=== PATIENT | female | born 2000 | race African-American/Black ===

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

== ENCOUNTER 2019-01-30 00:20 | Emergency (ER) | payer OTHER ==
[2019-01-30 00:36] LABS: BILIRUBIN,URINE NEGATIVE (NEGATIVE); GLUCOSE, URINE (UA) NEGATIVE (NEGATIVE); KETONES,URINE (UA) NEGATIVE (NEGATIVE); LEUKOCYTE ESTERASE, URINE NEGATIVE (NEGATIVE); NITRITE,URINE NEGATIVE (NEGATIVE); OCCULT BLOOD,URINE LARGE (NEGATIVE); PH,URINE 6.5 PH (5.0-7.5); PROTEIN,URINE NEGATIVE (NEGATIVE); UROBILINOGEN,URINE 0.2 (NORMAL) E.U./dL (NORMAL)
[2019-01-30 00:38] LABS: CLARITY,URINE CLEAR (CLEAR)
[2019-01-30 00:43] LABS: BACTERIA,URINE Rare /HPF (None Seen); SQUAMOUS EPITHELIAL CELL,UR MANY Squamous (<= Few)
[2019-01-30 01:18] LABS: BASOPHILS % (AUTO) 0.4 %; EOSINOPHILS # (AUTO) 0.1 10^3/uL (0.0-0.7); EOSINOPHILS % (AUTO) 0.7 %; HGB - HEMOGLOBIN 10.8 g/dL (12.0-16.0); LYMPHOCYTES # (AUTO) 2.1 10^3/uL (1.5-3.5); LYMPHOCYTES % (AUTO) 24.2 %; MEAN CORPUSCULAR HEMOGLOBIN 23.7 pg (27.0-31.0); MEAN CORPUSCULAR VOLUME 71.7 fL (81.0-99.0); MONOCYTES # (AUTO) 0.7 10^3/uL (0.0-1.0); MONOCYTES % (AUTO) 8.4 %; NEUTROPHILS # (AUTO) 5.7 10^3/uL (1.5-6.6); NEUTROPHILS % (AUTO) 65.9 %; PLT - PLATELET COUNT 247 10^3/uL (130-450); RED BLOOD COUNT 4.56 10^6/uL (4.20-5.40); RED CELL DISTRIBUTION WIDTH 22.5 % (12.0-15.0); WHITE BLOOD COUNT 8.6 x10^3/uL (4.8-10.8)
--- NOTE | 2019-01-30 01:26 | ED Physician Documentation ---
PD HPI FEMALE - Stated complaint Stated Complaint: FEM /8WKS PREG - Chief complaint Chief Complaint: Abd Pain - History obtained from History obtained from: Patient - History of Present Illness Timing - onset: Enter time (23:00), Today Timing - details: Abrupt onset Pain level max: 0 Pain level max: 3 (mild suprapubic) Associated symptoms: Pelvic pain, Vaginal bleeding. No: Fever, Abdominal pain Contributing factors: (approximately 8 weeks) OB-IT TECHNICIAN History: G (2), P (0), Miscarriage(s) (1) Recently seen: Not recently seen - Additional information Additional information: c/o vaginal bleeding, noted 11 PM tonight when she was urinating. This was associated with mild pelvic cramping. Symptoms have resolved prior to this evaluation Review of Systems Constitutional: denies: Fever, Chills, Sweats GI: denies: Abdominal Pain (pelvic pain, not abdominal pain per se), Nausea, Vomiting : reports: Vaginal bleeding, Now EGA (8 weeks). denies: Dysuria, Frequency Musculoskeletal: denies: Back pain PD PAST MEDICAL HISTORY - Past Medical History Past Medical History: Yes Neuro: Headaches, Migraines - Past Surgical History Past Surgical History: No - Present Medications Home Medications: Ambulatory Orders Medication Instructions Recorded Confirmed No Known Home Medications 10/08/18 12/24/18 - Allergies Allergies/Adverse Reactions: Allergies Allergy/AdvReac Type Severity Reaction Status Date / Time No Known Drug Allergies Allergy Verified 01/30/19 00:29 - Social History Does the pt smoke?: No Smoking Status: Never smoker Does the pt drink ETOH?: No Does the pt have substance abuse?: No - Immunizations Immunizations are current?: Yes - POLST Patient has POLST: No PD ED PE NORMAL - Vitals Vital signs reviewed: Yes - General General: Alert and oriented X 3, No acute distress, Well developed/nourished - Cardiac Cardiac: RRR, No murmur - Respiratory Respiratory: No respiratory distress, Clear bilaterally - Abdomen Abdomen: Soft, Non tender - Back Back: No CVA TTP Results - Vitals Vitals: Vital Signs - 24 hr 01/30/19 01/30/19 01/30/19 00:23 03:16 03:53 Temperature 36.9 C 36.9 C Heart Rate 74 65 71 Respiratory 16 14 14 Rate Blood Pressure 146/83 H 129/56 L 137/82 H O2 Saturation 100 100 100 Oxygen O2 Source Room air - Labs Labs: Laboratory Tests 01/30/19 01/30/19 01/30/19 00:27 01:08 01:08 WBC 8.6 RBC 4.56 Hgb 10.8 L Hct 32.7 L MCV 71.7 L MCH 23.7 L MCHC 33.0 RDW 22.5 H Plt Count 247 Neut # (Auto) 5.7 Lymph # (Auto) 2.1 [place] # (Auto) 0.7 Eos # (Auto) 0.1 Baso # (Auto) 0.0 Absolute Nucleated RBC 0.00 Nucleated RBC % 0.0 Sodium 136 Potassium 3.8 Chloride 105 Carbon Dioxide 22 Anion Gap 9.0 BUN 8 Creatinine 0.6 Estimated GFR (MDRD) 156 Glucose 89 Calcium 9.5 Total Bilirubin 0.3 AST 15 ALT < 10 L Alkaline Phosphatase 42 Total Protein 7.8 Albumin 4.1 Globulin 3.7 Albumin/Globulin Ratio 1.1 Lipase 27 Serum HCG, Qual Urine Color YELLOW Urine Clarity CLEAR Urine pH 6.5 Ur Specific [place] 1.010 Urine Protein NEGATIVE Urine Glucose (UA) NEGATIVE Urine Ketones NEGATIVE Urine Occult Blood LARGE H Urine Nitrite NEGATIVE Urine Bilirubin NEGATIVE Urine Urobilinogen 0.2 (NORMAL) Ur Leukocyte Esterase NEGATIVE Urine RBC 11-25 H Urine WBC 0-3 Ur Squamous Epith Cells MANY Squamous H Urine Bacteria Rare Ur Microscopic Review INDICATED Urine Culture Comments NOT INDICATED Blood Type 01/30/19 01/30/19 01:08 01:08 WBC RBC Hgb Hct MCV MCH MCHC RDW Plt Count Neut # (Auto) Lymph # (Auto) [place] # (Auto) Eos # (Auto) Baso # (Auto) Absolute Nucleated RBC Nucleated RBC % Sodium Potassium Chloride Carbon Dioxide Anion Gap BUN Creatinine Estimated GFR (MDRD) Glucose Calcium Total Bilirubin AST ALT Alkaline Phosphatase Total Protein Albumin Globulin Albumin/Globulin Ratio Lipase Serum HCG, Qual POSITIVE Urine Color Urine Clarity Urine pH Ur Specific [place] Urine Protein Urine Glucose (UA) Urine Ketones Urine Occult Blood Urine Nitrite Urine Bilirubin Urine Urobilinogen Ur Leukocyte Esterase Urine RBC Urine WBC Ur Squamous Epith Cells Urine Bacteria Ur Microscopic Review Urine Culture Comments Blood Type A POSITIVE - Rads (name of study) pelvic US Radiology: Prelim report reviewed, See rad report PD MEDICAL DECISION MAKING - ED course Complexity details: reviewed results, re-evaluated patient, considered differential, d/w patient Departure - Departure Disposition: 01 Home, Self Care Clinical Impression: Threatened in first trimester Condition: Good Instructions: ED Miscarriage Poss Follow-Up: [facility]cl[facility] [Provider Group] Discharge Date/Time: 01/30/19 04:01
[2019-01-30 01:28] LABS: ALBUMIN 4.1 g/dL (3.2-5.5); ALBUMIN/GLOBULIN RATIO 1.1 (1.0-2.2); ALKALINE PHOSPHATASE 42 IU/L (42-121); ALT ALANINE AMINOTRANSFERASE < 10 IU/L (10-60); AST ASPARTATE AMINOTRANSFERASE 15 IU/L (10-42); BILIRUBIN,TOTAL 0.3 mg/dL (0.2-1.0); BUN - BLOOD UREA NITROGEN 8 mg/dL (6-20); CALCIUM 9.5 mg/dL (8.5-10.3); CARBON DIOXIDE - CO2 22 mmol/L (21-32); CHLORIDE 105 mmol/L (101-111); CREATININE 0.6 mg/dL (0.4-1.0); GFR - MDRD 156 (>89); GLUCOSE 89 mg/dL (70-100); LIPASE 27 U/L (22-51); SODIUM 136 mmol/L (135-145); TOTAL PROTEIN 7.8 g/dL (6.7-8.2)
[2019-01-30 01:57] LABS: HCG,QUALITATIVE BLOOD POSITIVE
--- NOTE | 2019-01-30 03:35 | Ultrasound Report ---
Reason: , vaginal bleeding Procedure Date: 01/30/2019 Accession Number: [id number] / [id number] Procedure: US - OB First Trimester CPT Code: Final Report FULL RESULT: EXAM: FIRST TRIMESTER OBSTETRIC ULTRASOUND (Less than 11 weeks) EXAM DATE: 01/30/2019 03:06 AM CLINICAL HISTORY: , vaginal bleeding. COMPARISONS: None. TECHNIQUE: Transabdominal and transvaginal ultrasound examination with static image documentation. FINDINGS: LMP: 12/07/2018. Estimated gestational age: 7 weeks 5 days. Estimated due date: 09/13/2019. Gestational Sac: Single intrauterine. Mean gestational sac diameter: 31.6 mm = 8 weeks 3 days. Embryo: CRL (crown-rump length) 18.7 mm = 8 weeks 3 days. Cardiac activity: 171 beats per minute. Yolk sac: 4.6 mm. Amniotic fluid: Not accurately assessed at this gestational age. Early placenta: Not visible at this gestational age. Other: No perigestational fluid collection demonstrated. MATERNAL STRUCTURES: Uterus: Retroflexed. Unremarkable. Cervix: Closed. Right Ovary/Adnexa: The ovary measures 1.8 x 3.0 x 1.7. Unremarkable. Left Ovary/Adnexa: The ovary measures 3.3 x 2.0 x 2.5 cm, with a small corpus luteum cyst measuring 2.6 x 1.4 x 1.8 cm. Unremarkable. Free Fluid: None. Other: None. IMPRESSION: 1. Single live intrauterine gestation measuring 8 weeks 3 days with a due date of 09/08/2019. This is discordant with dates based on LMP. 2. No perigestational hemorrhage evident on this exam. RADIA
[2019-01-30 03:54] VITALS: BP 137/82
== END 2019-01-30 04:01 | disposition home or self-care (01) ==
LOC: ED 00:20
DX: O20.0 Threatened abortion (principal); Z3A.08 8 weeks gestation of pregnancy
CPT/HCPCS: 36415; 76801; 76817; 80053; 81001; 81003; 83690; 84702; 84703; 85025; 86900; 86901; 87086; 99284

== ENCOUNTER 2019-03-29 13:43 | Emergency (ER) | payer OTHER ==
[2019-03-29 14:24] LABS: BASOPHILS % (AUTO) 0.4 %; EOSINOPHILS # (AUTO) 0.1 10^3/uL (0.0-0.7); EOSINOPHILS % (AUTO) 0.9 %; HGB - HEMOGLOBIN 11.7 g/dL (12.0-16.0); LYMPHOCYTES # (AUTO) 1.5 10^3/uL (1.5-3.5); MEAN CORPUSCULAR HEMOGLOBIN 26.9 pg (27.0-31.0); MEAN CORPUSCULAR HGB CONC 34.7 g/dL (32.0-36.0); MEAN CORPUSCULAR VOLUME 77.5 fL (81.0-99.0); MEAN PLATELET VOLUME 12.1 fL (7.9-10.8); MONOCYTES # (AUTO) 0.6 10^3/uL (0.0-1.0); MONOCYTES % (AUTO) 8.1 %; NEUTROPHILS # (AUTO) 5.2 10^3/uL (1.5-6.6); NEUTROPHILS % (AUTO) 70.1 %; PLT - PLATELET COUNT 206 10^3/uL (130-450); RED BLOOD COUNT 4.35 10^6/uL (4.20-5.40); RED CELL DISTRIBUTION WIDTH 15.5 % (12.0-15.0); WHITE BLOOD COUNT 7.5 x10^3/uL (4.8-10.8)
[2019-03-29 14:43] LABS: ALBUMIN 3.5 g/dL (3.2-5.5); ALBUMIN/GLOBULIN RATIO 0.9 (1.0-2.2); BILIRUBIN,TOTAL 0.4 mg/dL (0.2-1.0); CALCIUM 9.3 mg/dL (8.5-10.3); CREATININE 0.6 mg/dL (0.4-1.0); TOTAL PROTEIN 7.3 g/dL (6.7-8.2)
[2019-03-29] MEDS ORDERED: LIDOCAINE VISCOUS 2% 15 ML UDC MM STA (15:38)
[2019-03-29] MEDS ORDERED: MAG HYDROX/AL HYDROX/SIMETH 30 ML UDC PO STA (15:39)
--- NOTE | 2019-03-29 16:42 | ED Physician Documentation ---
History of Present Illness - Stated complaint Stated Complaint: CHEST/ABD PAIN - Chief complaint Chief Complaint: Abd Pain - History obtained from History obtained from: Patient - Additonal information Additional information: This is a 18-year-old who is 16 weeks presents with complaints that she is having sharp substernal chest pains as well as pains in the right upper abdomen and across the suprapubic region. This is been there for the past 3 days they are very intermittent more persistent in the suprapubic area and could last for 30 to 60 minutes. She has had some nausea but denies any heartburn. She has felt a little short of breath and been coughing some. She had some subjective fevers. Her last OB check was in February and she says she is not scheduled again until April 12 [facility] referred her to a specialist for specific genetic testing based on her family history. She does she is 2 para 0 with a first trimester prior m iscarriage. Review of Systems Constitutional: reports: Fever (subjective) Cardiac: reports: Chest pain / pressure. denies: Palpitations Respiratory: reports: Dyspnea, Cough GI: reports: Abdominal Pain, Nausea : reports: Now EGA. denies: Dysuria PD PAST MEDICAL HISTORY - Past Medical History Neuro: Headaches, Migraines - Past Surgical History Past Surgical History: No - Present Medications Home Medications: Ambulatory Orders Medication Instructions Recorded Confirmed cephALEXin [Keflex] 250 mg PO Q6H #28 capsule 03/29/19 - Allergies Allergies/Adverse Reactions: Allergies Allergy/AdvReac Type Severity Reaction Status Date / Time No Known Drug Allergies Allergy Verified 03/29/19 13:47 - Social History Does the pt smoke?: No Smoking Status: Never smoker Does the pt drink ETOH?: No Does the pt have substance abuse?: No - Immunizations Immunizations are current?: Yes - POLST Patient has POLST: No PD ED PE NORMAL - Vitals Vital signs reviewed: Yes - General General: Alert and oriented X 3, No acute distress, Well developed/nourished - HEENT HEENT: Atraumatic, PERRL, EOMI, Other (No scleral icterus.) - Cardiac Cardiac: RRR, No murmur, No gallop, No rub, Strong equal pulses - Respiratory Respiratory: No respiratory distress, Clear bilaterally - Abdomen Abdomen: Normal bowel sounds, Soft, Non tender, Non distended, Other (Gravid uterus) - Derm Derm: Normal color, Warm and dry, No rash - Neuro Neuro: Alert and oriented X 3, barrel maker 2-12 intact, No motor deficit, No sensory deficit, Normal speech - Psych Psych: Normal mood, Normal affect Results - Vitals Vitals: Vital Signs - 24 hr 03/29/19 03/29/19 03/29/19 13:47 15:51 16:55 Temperature 36.8 C 37.1 C Heart Rate 83 76 71 Respiratory 14 20 18 Rate Blood Pressure 110/66 116/71 116/79 O2 Saturation 100 100 100 Oxygen O2 Source Room air - EKG (time done) 1354 Rate: Rate (enter#) (85) Rhythm: NSR Intervals: No: Wide QRS Ischemia: Normal ST segments, T wave inversion (III, aVF, V1-3) Compare to prior EKG: Old EKG unavailable - Labs Labs: Laboratory Tests 03/29/19 03/29/19 03/29/19 14:14 14:14 16:30 WBC 7.5 RBC 4.35 Hgb 11.7 L Hct 33.7 L MCV 77.5 L MCH 26.9 L MCHC 34.7 RDW 15.5 H Plt Count 206 MPV 12.1 H Neut # (Auto) 5.2 Lymph # (Auto) 1.5 [place] # (Auto) 0.6 Eos # (Auto) 0.1 Baso # (Auto) 0.0 Absolute Nucleated RBC 0.00 Nucleated RBC % 0.0 Sodium 135 Potassium 3.6 Chloride 105 Carbon Dioxide 23 Anion Gap 7.0 BUN 7 Creatinine 0.6 Estimated GFR (MDRD) 156 Glucose 84 Calcium 9.3 Total Bilirubin 0.4 AST 17 ALT 12 Alkaline Phosphatase 40 L Total Protein 7.3 Albumin 3.5 Globulin 3.8 Albumin/Globulin Ratio 0.9 L Lipase 24 Urine Color YELLOW Urine Clarity HAZY Urine pH 7.0 Ur Specific [place] 1.020 Urine Protein NEGATIVE Urine Glucose (UA) NEGATIVE Urine Ketones NEGATIVE Urine Occult Blood NEGATIVE Urine Nitrite NEGATIVE Urine Bilirubin NEGATIVE Urine Urobilinogen 0.2 (NORMAL) Ur Leukocyte Esterase MODERATE H Urine RBC 0-5 Urine WBC 4-5 Ur Squamous Epith Cells MANY Squamous H Urine Bacteria Many H Ur Microscopic Review INDICATED Urine Culture Comments NOT INDICATED PD MEDICAL DECISION MAKING - ED course Complexity details: reviewed old records ( ) ED course: 1708: The patient received a GI cocktail with Maalox and viscous lidocaine. Her laboratory studies are normal. I am still waiting on a urinalysis to make sure there is no protein or infection. She said she was feeling completely better following the GI cocktail. heart tones were 134. 1735: The urine was unfortunately a contaminated specimen but there was no protein in it. There were a lot of squamous epithelial cells only 4-5 white blood cells but many bacteria. Given the and lower suprapubic discomfort I have elected to cover her with antibiotics and have asked that a culture be set up. She should follow-up with her OB if she continues with suprapubic discomfort. Return immediately if she has any vaginal bleeding. Departure - Departure Disposition: Home, Self Care Clinical Impression: Atypical chest pain GERD (gastroesophageal reflux disease) Qualifiers: Esophagitis presence: without esophagitis Qualified Code(s): K21.9 - Gastro- esophageal reflux disease without esophagitis Abdominal pain Qualifiers: Abdominal location: generalized Qualified Code(s): R10.84 - Generalized abd ominal pain Qualifiers: Weeks of gestation: 16 weeks Qualified Code(s): Z3A.16 - 16 weeks gestation of UTI (urinary tract infection) Qualifiers: Urinary tract infection type: acute cystitis Hematuria presence: without hematuria Qualified Code(s): N30.00 - Acute cystitis without hematuria Condition: Good Instructions: ED GERD, ED UTI Cystitis Female Follow-Up: Rico Stanley ARNP [Primary Care Provider] - [facility] [Provider Group] Prescriptions: cephALEXin [Keflex] 250 mg PO Q6H #28 capsule Comments: Take the antibiotic 4 times a day as prescribed. Make sure that you are drinking plenty of water. Use Maalox if you are experiencing any chest pains like he had today. Follow-up with your OB for continued suprapubic pain. Follow-up immediately with them or return if you have increasing pain like contractions, you have vaginal bleeding or other problems arise.
[2019-03-29 16:48] LABS: BILIRUBIN,URINE NEGATIVE (NEGATIVE); GLUCOSE, URINE (UA) NEGATIVE (NEGATIVE); KETONES,URINE (UA) NEGATIVE (NEGATIVE); LEUKOCYTE ESTERASE, URINE MODERATE (NEGATIVE); NITRITE,URINE NEGATIVE (NEGATIVE); OCCULT BLOOD,URINE NEGATIVE (NEGATIVE); PROTEIN,URINE NEGATIVE (NEGATIVE); UROBILINOGEN,URINE 0.2 (NORMAL) E.U./dL (NORMAL)
[2019-03-29 16:50] LABS: CLARITY,URINE HAZY (CLEAR)
[2019-03-29 16:55] VITALS: BP 116/79
[2019-03-29 16:55] LABS: BACTERIA,URINE Many /HPF (None Seen); RBC,URINE 0-5 /HPF (0-5); SQUAMOUS EPITHELIAL CELL,UR MANY Squamous (<= Few)
== END 2019-03-29 17:58 | disposition home or self-care (01) ==
LOC: ED 13:43
DX: O99.89 Other specified diseases and conditions complicating pregnancy, childbirth and the puerperium (principal); R07.89 Other chest pain; R10.84 Generalized abdominal pain; N30.00 Acute cystitis without hematuria; Z3A.16 16 weeks gestation of pregnancy
CPT/HCPCS: 36415; 80053; 81001; 83690; 85025; 87086; 93005; 99283; 99284; A9270; 81003

== ENCOUNTER 2019-05-12 13:42 | Outpatient (CLI) | payer OTHER | END 2019-05-12 13:43 | disposition EMS.NT | LOC: EMS 13:42 | PROVIDERS: ATTEND Surgery | DX: O99.89 Other specified diseases and conditions complicating pregnancy, childbirth and the puerperium (principal); R51 Headache ==

== ENCOUNTER 2019-05-12 14:25 | Emergency (ER) | payer OTHER ==
[2019-05-12] MEDS ORDERED: MAG HYDROX/AL HYDROX/SIMETH 30 ML UDC PO STA (15:01)
[2019-05-12] MEDS ORDERED: BENZONATATE 100 MG CAPSULE PO STA (15:01)
[2019-05-12] MEDS ORDERED: IBUPROFEN 600 MG TABLET PO STA (15:01)
[2019-05-12] MEDS ORDERED: ACETAMINOPHEN 325 MG TABLET PO STA (15:01)
[2019-05-12 15:52] LABS: BASOPHILS % (AUTO) 0.1 %; EOSINOPHILS % (AUTO) 0.3 %; LYMPHOCYTES # (AUTO) 1.6 10^3/uL (1.5-3.5); LYMPHOCYTES % (AUTO) 16.8 %; MEAN CORPUSCULAR HEMOGLOBIN 27.1 pg (27.0-31.0); MEAN CORPUSCULAR HGB CONC 34.1 g/dL (32.0-36.0); MEAN CORPUSCULAR VOLUME 79.6 fL (81.0-99.0); MEAN PLATELET VOLUME 11.5 fL (7.9-10.8); MONOCYTES # (AUTO) 0.8 10^3/uL (0.0-1.0); MONOCYTES % (AUTO) 7.8 %; NEUTROPHILS # (AUTO) 7.2 10^3/uL (1.5-6.6); NEUTROPHILS % (AUTO) 74.4 %; PLT - PLATELET COUNT 193 10^3/uL (130-450); RED BLOOD COUNT 4.06 10^6/uL (4.20-5.40); RED CELL DISTRIBUTION WIDTH 13.7 % (12.0-15.0); WHITE BLOOD COUNT 9.7 x10^3/uL (4.8-10.8)
[2019-05-12 16:05] LABS: ALBUMIN 3.4 g/dL (3.2-5.5); ALBUMIN/GLOBULIN RATIO 0.9 (1.0-2.2); BILIRUBIN,TOTAL 0.6 mg/dL (0.2-1.0); CALCIUM 9.2 mg/dL (8.5-10.3); CREATININE 0.5 mg/dL (0.4-1.0)
--- NOTE | 2019-05-12 16:10 | ED Physician Documentation ---
PD HPI CHEST PAIN - Stated complaint Stated Complaint: CHEST DISCOMFORT - Chief complaint Chief Complaint: Resp - History obtained from History obtained from: Patient - History of Present Illness Timing - onset: How many hours ago (1), Today Timing - duration: Hours (1) Timing - details: Abrupt onset, Still present, Waxing and waning Quality: Aching Location: Substernal, Left chest (at sternal border) Worsened by: Inspiration, Movement. No: Exertion Associated symptoms: Cough (for couple of days). No: Shortness of air, Nausea, Vomiting Similar symptoms before: Has not had sx before Recently seen: Not recently seen Review of Systems Constitutional: denies: Fever, Chills, Myalgias Nose: denies: Rhinorrhea / runny nose, Congestion Throat: denies: Sore throat Respiratory: reports: Cough GI: reports: Nausea. denies: Abdominal Pain, Vomiting, Diarrhea : reports: Now EGA (23 weeks). denies: Vaginal bleeding PD PAST MEDICAL HISTORY - Past Medical History Neuro: Headaches, Migraines - Past Surgical History Past Surgical History: No - Present Medications Home Medications: Ambulatory Orders Medication Instructions Recorded Confirmed Ibuprofen [Motrin] 600 mg PO TID PRN #15 tab 05/12/19 - Allergies Allergies/Adverse Reactions: Allergies Allergy/AdvReac Type Severity Reaction Status Date / Time No Known Drug Allergies Allergy Verified 05/12/19 15:15 - Social History Does the pt smoke?: No Smoking Status: Never smoker Does the pt drink ETOH?: No Does the pt have substance abuse?: No - Immunizations Immunizations are current?: Yes - POLST Patient has POLST: No PD ED PE NORMAL - Vitals Vital signs reviewed: Yes - General General: Alert and oriented X 3, No acute distress, Well developed/nourished - HEENT HEENT: Moist mucous membranes, Pharynx benign - Neck Neck: Supple, no meningeal sign, No adenopathy - Cardiac Cardiac: RRR, No murmur - Respiratory Respiratory: Clear bilaterally, Other (left chestwall tenderness at sternal margin. No rash nor redness. ) - Abdomen Abdomen: Normal bowel sounds, Soft, Non tender, No organomegaly, Other (gravid with fundus above umbilicus c/w dates. ) Results - Vitals Vitals: Vital Signs - 24 hr 05/12/19 05/12/19 14:20 16:15 Temperature 36.9 C 36.7 C Heart Rate 67 74 Respiratory 16 20 Rate Blood Pressure 129/65 139/71 H O2 Saturation 100 100 Oxygen O2 Source Room air - EKG (time done) 14:38 Rate: Rate (enter#) (67) Rhythm: NSR [place]: Normal Intervals: Normal [place] QRS: Normal Ischemia: Normal ST segments. No: ST elevation c/w ischemia, ST depression - Labs Labs: Laboratory Tests 05/12/19 05/12/19 15:43 15:43 WBC 9.7 RBC 4.06 L Hgb 11.0 L Hct 32.3 L MCV 79.6 L MCH 27.1 MCHC 34.1 RDW 13.7 Plt Count 193 MPV 11.5 H Neut # (Auto) 7.2 H Lymph # (Auto) 1.6 [place] # (Auto) 0.8 Eos # (Auto) 0.0 Baso # (Auto) 0.0 Absolute Nucleated RBC 0.00 Nucleated RBC % 0.0 Sodium 136 Potassium 3.5 Chloride 105 Carbon Dioxide 21 Anion Gap 10.0 BUN 9 Creatinine 0.5 Estimated GFR (MDRD) 193 Glucose 87 Calcium 9.2 Total Bilirubin 0.6 AST 16 ALT 13 Alkaline Phosphatase 49 Total Protein 7.0 Albumin 3.4 Globulin 3.6 Albumin/Globulin Ratio 0.9 L Lipase 25 PD MEDICAL DECISION MAKING - ED course Complexity details: considered differential (has tenderness in sternal cartilage. No rash, no cough, CXR clear. Not improved with GI meds. Presume inflammation related to recent cough. ), d/w patient Departure - Departure Disposition: 01 Home, Self Care Clinical Impression: Anterior chest wall pain Condition: Stable Record reviewed to determine appropriate education?: Yes Instructions: ED Chest Pain Costochondritis Follow-Up: Rico Stanley ARNP [Primary Care Provider] - Prescriptions: Ibuprofen [Motrin] 600 mg PO TID PRN #15 tab PRN Reason: Pain Comments: Your blood tests are normal. No signs of pancreatic or liver abnormality. You could be having some stomach symptoms related to acid production or so. It seems more clinically though that you are having some inflammation of the chest wall as there is a little tenderness there. At this point in your you can still use anti-inflammatories so consider some ibuprofen 2-3 times a day for the next 4 to 5 days. To that add Tylenol if needed. Recheck if not improved over the next couple of days and return if other symptoms develop sooner. Discharge Date/Time: 05/12/19 16:16
[2019-05-12 16:15] VITALS: BP 139/71
== END 2019-05-12 16:16 | disposition home or self-care (01) ==
LOC: EDUNIT# → ED 14:25
DX: O99.89 Other specified diseases and conditions complicating pregnancy, childbirth and the puerperium (principal); R07.89 Other chest pain; Z3A.23 23 weeks gestation of pregnancy
CPT/HCPCS: 36415; 80053; 83690; 85025; 93005; 99283; 99284; A9270

== ENCOUNTER 2019-05-23 20:40 | Outpatient (CLI) | payer OTHER | END 2019-05-23 20:41 | disposition critical access hospital (66) | LOC: EMS 20:40 | PROVIDERS: ATTEND Surgery | DX: S51.812A Laceration without foreign body of left forearm, initial encounter (principal); X78.1XXA Intentional self-harm by knife, initial encounter; Y92.039 Unspecified place in apartment as the place of occurrence of the external cause | CPT/HCPCS: A0425; A0429 ==

== ENCOUNTER 2019-05-23 20:57 | Emergency (ER) | payer OTHER ==
--- NOTE | 2019-05-23 21:25 | ED Physician Documentation ---
<Jhon Mancia - Last Filed: 05/24/19 16:30> PD HPI MHE - Stated complaint Stated Complaint: SI - Chief complaint Chief Complaint: MHE - History obtained from History obtained from: Patient - History of Present Illness Primary symptom: Self harm - cut, Depression Timing - onset: Enter time (19:00), Today Pain level now: 0 Similar symptoms before: Has not had sx before Recently seen: Not recently seen - Additional information Additional information: BIBA for SI and self-harm. Patient tells me she was depressed tonight and used a knife to self-inflict lacerations to left FA. She cannot give a specific inciting factor or incident that caused this, tells me "a lot going on at home". She is 24 weeks and lives alone; has no-contact order w/ since March. She denies h/o self-harm, denies having been evaluated in the past for mental health issues. She says she has been depressed for several months but worse past several days. Review of Systems Cardiac: reports: Reviewed and negative Respiratory: reports: Reviewed and negative GI: reports: Reviewed and negative Skin: reports: Laceration (s) Neurologic: denies: Focal weakness, Numbness Psychiatric: reports: Depressed PD PAST MEDICAL HISTORY - Past Medical History Past Medical History: Yes Cardiovascular: None Respiratory: None Neuro: Headaches, Migraines Endocrine/Autoimmune: None GI: None DRY CAN TENDER: None : None HEENT: None Psych: None Musculoskeletal: None Derm: None - Past Surgical History Past Surgical History: No - Present Medications Home Medications: Ambulatory Orders Medication Instructions Recorded Confirmed Ibuprofen [Motrin] 600 mg PO TID PRN #15 tab 05/12/19 - Allergies Allergies/Adverse Reactions: Allergies Allergy/AdvReac Type Severity Reaction Status Date / Time No Known Drug Allergies Allergy Verified 05/23/19 21:00 - Social History Does the pt smoke?: No Smoking Status: Never smoker Does the pt drink ETOH?: No Does the pt have substance abuse?: No - Immunizations Immunizations are current?: Yes - POLST Patient has POLST: No PD ED PE NORMAL - Vitals Vital signs reviewed: Yes - General General: Alert and oriented X 3, No acute distress, Well developed/nourished - Cardiac Cardiac: RRR, No murmur - Respiratory Respiratory: No respiratory distress, Clear bilaterally - Abdomen Abdomen: Soft, Non tender - Extremities Extremities: Other (multiple linear, superficial left FA lacerations with single linear, superficial right FA laceration) - Neuro Neuro: Alert and oriented X 3 Eye Opening: Spontaneous Motor: Obeys Commands Verbal: Oriented GCS Score: 15 - Psych Psych: Normal mood, Normal affect PD MEDICAL DECISION MAKING - ED course Complexity details: reviewed results, re-evaluated patient, considered differential, d/w patient Departure - Departure Disposition: 65 Psych Hosp/Unit DC/Xfer Clinical Impression: Suicidal ideation Discharge Date/Time: 05/24/19 14:55 <Kristopher Day - Last Filed: 05/24/19 19:13> Results - Vitals Vitals: Vital Signs - 24 hr 05/23/19 05/23/19 05/23/19 21:01 21:08 22:00 Temperature 36.9 C Heart Rate 83 Respiratory 14 16 16 Rate Blood Pressure 129/78 O2 Saturation 98 05/23/19 05/24/19 05/24/19 23:02 00:05 02:13 Temperature Heart Rate Respiratory 17 16 15 Rate Blood Pressure O2 Saturation 05/24/19 05/24/19 05/24/19 03:19 03:46 04:55 Temperature Heart Rate Respiratory 14 14 14 Rate Blood Pressure O2 Saturation 05/24/19 09:25 Temperature 37.0 C Heart Rate 77 Respiratory 15 Rate Blood Pressure 106/55 L O2 Saturation 99 Oxygen O2 Source Room air - Labs Labs: Laboratory Tests 05/23/19 05/23/19 05/23/19 21:31 21:31 21:51 WBC 10.0 RBC 4.03 L Hgb 11.3 L Hct 32.8 L MCV 81.4 MCH 28.0 MCHC 34.5 RDW 13.2 Plt Count 214 MPV 12.6 H Neut # (Auto) 7.1 H Lymph # (Auto) 1.9 [place] # (Auto) 0.8 Eos # (Auto) 0.1 Baso # (Auto) 0.0 Absolute Nucleated RBC 0.00 Nucleated RBC % 0.0 Sodium 138 Potassium 3.8 Chloride 106 Carbon Dioxide 23 Anion Gap 9.0 BUN 7 Creatinine 0.6 Estimated GFR (MDRD) 156 Glucose 89 Calcium 9.3 Total Bilirubin 0.5 AST 22 ALT 16 Alkaline Phosphatase 54 Total Protein 7.1 Albumin 3.5 Globulin 3.6 Albumin/Globulin Ratio 1.0 Lipase 31 Urine Color Urine Clarity Urine pH Ur Specific [place] Urine Protein Urine Glucose (UA) Urine Ketones Urine Occult Blood Urine Nitrite Urine Bilirubin Urine Urobilinogen Ur Leukocyte Esterase Ur Microscopic Review Urine Culture Comments Urine HCG, Qual Salicylates < 6.0 Urine Opiates Screen Ur Oxycodone Screen Urine Methadone Screen Ur Propoxyphene Screen Acetaminophen < 10 L Ur Barbiturates Screen Ur Tricyclics Screen Ur Phencyclidine Scrn Ur Amphetamine Screen U Methamphetamines Scrn U Benzodiazepines Scrn Urine Cocaine Screen U Cannabinoids Screen Ethyl Alcohol < 5.0 05/23/19 05/23/19 22:00 22:00 WBC RBC Hgb Hct MCV MCH MCHC RDW Plt Count MPV Neut # (Auto) Lymph # (Auto) [place] # (Auto) Eos # (Auto) Baso # (Auto) Absolute Nucleated RBC Nucleated RBC % Sodium Potassium Chloride Carbon Dioxide Anion Gap BUN Creatinine Estimated GFR (MDRD) Glucose Calcium Total Bilirubin AST ALT Alkaline Phosphatase Total Protein Albumin Globulin Albumin/Globulin Ratio Lipase Urine Color YELLOW Urine Clarity CLEAR Urine pH 7.0 Ur Specific [place] <=1.005 Urine Protein NEGATIVE Urine Glucose (UA) NEGATIVE Urine Ketones NEGATIVE Urine Occult Blood NEGATIVE Urine Nitrite NEGATIVE Urine Bilirubin NEGATIVE Urine Urobilinogen 0.2 (NORMAL) Ur Leukocyte Esterase NEGATIVE Ur Microscopic Review NOT INDICATED Urine Culture Comments NOT INDICATED Urine HCG, Qual POSITIVE Salicylates Urine Opiates Screen NEGATIVE Ur Oxycodone Screen NEGATIVE Urine Methadone Screen NEGATIVE Ur Propoxyphene Screen NEGATIVE Acetaminophen Ur Barbiturates Screen NEGATIVE Ur Tricyclics Screen NEGATIVE Ur Phencyclidine Scrn NEGATIVE Ur Amphetamine Screen NEGATIVE U Methamphetamines Scrn NEGATIVE U Benzodiazepines Scrn NEGATIVE Urine Cocaine Screen NEGATIVE U Cannabinoids Screen NEGATIVE Ethyl Alcohol PD MEDICAL DECISION MAKING - ED course Complexity details: reviewed results ED course: 18-year-old female with depression and suicidal ideation is accepted voluntary to [facility].
[2019-05-23 21:37] LABS: BASOPHILS % (AUTO) 0.2 %; EOSINOPHILS # (AUTO) 0.1 10^3/uL (0.0-0.7); EOSINOPHILS % (AUTO) 0.6 %; HGB - HEMOGLOBIN 11.3 g/dL (12.0-16.0); LYMPHOCYTES # (AUTO) 1.9 10^3/uL (1.5-3.5); MEAN CORPUSCULAR HGB CONC 34.5 g/dL (32.0-36.0); MEAN CORPUSCULAR VOLUME 81.4 fL (81.0-99.0); MEAN PLATELET VOLUME 12.6 fL (7.9-10.8); MONOCYTES # (AUTO) 0.8 10^3/uL (0.0-1.0); MONOCYTES % (AUTO) 8.4 %; NEUTROPHILS # (AUTO) 7.1 10^3/uL (1.5-6.6); NEUTROPHILS % (AUTO) 71.2 %; PLT - PLATELET COUNT 214 10^3/uL (130-450); RED BLOOD COUNT 4.03 10^6/uL (4.20-5.40); RED CELL DISTRIBUTION WIDTH 13.2 % (12.0-15.0)
[2019-05-23 21:59] LABS: ACETAMINOPHEN < 10 ug/mL (10-30); ALBUMIN 3.5 g/dL (3.2-5.5); ALKALINE PHOSPHATASE 54 IU/L (42-121); ALT ALANINE AMINOTRANSFERASE 16 IU/L (10-60); AST ASPARTATE AMINOTRANSFERASE 22 IU/L (10-42); BILIRUBIN,TOTAL 0.5 mg/dL (0.2-1.0); BUN - BLOOD UREA NITROGEN 7 mg/dL (6-20); CALCIUM 9.3 mg/dL (8.5-10.3); CARBON DIOXIDE - CO2 23 mmol/L (21-32); CHLORIDE 106 mmol/L (101-111); CREATININE 0.6 mg/dL (0.4-1.0); GFR - MDRD 156 (>89); GLUCOSE 89 mg/dL (70-100); LIPASE 31 U/L (22-51); SALICYLATE < 6.0 mg/dL; SODIUM 138 mmol/L (135-145); TOTAL PROTEIN 7.1 g/dL (6.7-8.2)
[2019-05-23 22:03] LABS: MUDS CUTOFF CONCENTRATIONS CUTOFF CONC BELOW:
[2019-05-23 22:05] LABS: BILIRUBIN,URINE NEGATIVE (NEGATIVE); GLUCOSE, URINE (UA) NEGATIVE (NEGATIVE); KETONES,URINE (UA) NEGATIVE (NEGATIVE); LEUKOCYTE ESTERASE, URINE NEGATIVE (NEGATIVE); NITRITE,URINE NEGATIVE (NEGATIVE); OCCULT BLOOD,URINE NEGATIVE (NEGATIVE); PROTEIN,URINE NEGATIVE (NEGATIVE); UROBILINOGEN,URINE 0.2 (NORMAL) E.U./dL (NORMAL)
[2019-05-23 22:07] LABS: CLARITY,URINE CLEAR (CLEAR); HCG UR QUAL POSITIVE
[2019-05-23 22:15] LABS: AMPHETAMINE SCREEN,URINE NEGATIVE (NEGATIVE); BENZODIAZEPINES SCREEN, URINE NEGATIVE (NEGATIVE); COCAINE SCREEN URINE NEGATIVE (NEGATIVE); METHADONE SCREEN, URINE NEGATIVE (NEGATIVE); METHAMPHETAMINES SCREEN, URINE NEGATIVE (NEGATIVE); OPIATE SCREEN, URINE NEGATIVE (NEGATIVE); OXYCODONE SCREEN, URINE NEGATIVE (NEGATIVE); PROPOXYPHENE SCREEN, URINE NEGATIVE (NEGATIVE); TRICYCLIC ANTIDEPRESSANT,URINE NEGATIVE (NEGATIVE)
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
[2019-05-24 09:26] VITALS: BP 106/55
== END 2019-05-24 14:55 ==
LOC: EDUNIT# → ED 20:57
DX: R45.851 Suicidal ideations (principal); O99.342 Other mental disorders complicating pregnancy, second trimester; F32.9 Major depressive disorder, single episode, unspecified; F43.10 Post-traumatic stress disorder, unspecified; S51.812A Laceration without foreign body of left forearm, initial encounter; S51.811A Laceration without foreign body of right forearm, initial encounter; X78.1XXA Intentional self-harm by knife, initial encounter; Z3A.24 24 weeks gestation of pregnancy
CPT/HCPCS: 36415; 80053; 80320; 80329; 81003; 81025; 83690; 85025; 99284; 99285; G0425; 80306; 80307; 81001; 87086

== ENCOUNTER 2021-05-19 22:54 | Outpatient (CLI) | payer OTHER | END 2021-05-19 22:55 | disposition EMS.NT | LOC: EMS 22:54 | DX: F41.9 Anxiety disorder, unspecified (principal); K59.00 Constipation, unspecified ==